=== PATIENT | female | born 2000 | race Caucasian/White ===

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

== ENCOUNTER 2019-03-26 08:01 | Emergency (ER) | payer OTHER ==
[~2019-03-26] VITALS: Ht 172.7 cm; Wt 93.0 kg
[~2019-03-26 08:01] MED LIST changes: +AMOXICILLIN500 M3 PO; +Motrin,Rufen800 MG PO
[2019-03-26 08:02] VITALS: BP 122/77
[2019-03-26] MEDS ORDERED: ZITHROMAX250 MG PO (08:46)
[2019-03-26 09:07] LABS: BASO # 0.1 10*3/uL (0.0-0.1); BASO % 0.9 % (0.0-1.0); EOS # 0.3 10*3/uL (0.0-0.4); EOS % 4.3 % (1.0-4.0); HEMATOCRIT 40.3 % (37.0-47.0); HEMOGLOBIN 12.8 g/dl (12.0-16.0); LYMPH # 2.5 10*3/uL (1.3-4.4); LYMPH % 37.6 % (27.0-41.0); MEAN CELL VOLUME 91.2 fl (81.0-99.0); MEAN CORPUSCULAR HGB CONC 31.8 g/dl (33.0-37.0); MEAN PLATELET VOLUME 11.2 fl (9.6-12.3); MONO # 0.6 10*3/uL (0.1-1.0); MONO % 9.2 % (3.0-9.0); NEUT # 3.1 10*3/uL (2.3-7.9); NEUT % 47.5 % (47.0-73.0); PLATELET COUNT AUTOMATED 216 10*3/uL (130-400); RED BLOOD COUNT 4.42 10*6/uL (4.10-5.10); RED CELL DISTRI WIDTH 13.7 % (0-14.5); WHITE BLOOD COUNT 6.6 10*3/uL (4.8-10.8)
== END 2019-03-26 09:40 | disposition home or self-care (01) ==
LOC: ED 08:01
PROVIDERS: Hospitalist
DX: J32.9 Chronic sinusitis, unspecified (principal); R11.2 Nausea with vomiting, unspecified; J02.9 Acute pharyngitis, unspecified

== ENCOUNTER 2019-05-06 06:52 | Emergency (ER) | payer OTHER ==
[~2019-05-06] VITALS: Ht 172.7 cm; Wt 91.6 kg
[~2019-05-06 06:52] MED LIST changes: +ZITHROMAX250 MG PO
[2019-05-06 06:54] VITALS: BP 111/70
[2019-05-06] MEDS ORDERED: PROVENTIL HFA6.7 GM INH (08:04)
[2019-05-06] MEDS ORDERED: DELTASONE20 M1 PO (08:04)
== END 2019-05-06 08:11 | disposition home or self-care (01) ==
LOC: ED 06:52
DX: J20.9 Acute bronchitis, unspecified (principal); J06.9 Acute upper respiratory infection, unspecified

== ENCOUNTER 2019-09-02 20:44 | Emergency (ER) | payer OTHER ==
[~2019-09-02] VITALS: Ht 172.7 cm; Wt 95.3 kg
[~2019-09-02 20:44] MED LIST changes: +DELTASONE20 M1 PO; +PROVENTIL HFA6.7 GM INH; +TESSALON PERLE100 MG PO
[2019-09-02 20:46] VITALS: BP 120/73
[2019-09-02 22:01] LABS: BASO # 0.1 10*3/uL (0.0-0.1); BASO % 0.8 % (0.0-1.0); EOS # 0.2 10*3/uL (0.0-0.4); EOS % 3.9 % (1.0-4.0); HEMATOCRIT 39.7 % (37.0-47.0); HEMOGLOBIN 13.1 g/dl (12.0-16.0); LYMPH # 2.1 10*3/uL (1.3-4.4); LYMPH % 32.9 % (27.0-41.0); MEAN CELL VOLUME 89.8 fl (81.0-99.0); MEAN CORPUSCULAR HGB 29.6 pg (27.0-31.0); MONO # 0.8 10*3/uL (0.1-1.0); NEUT # 3.1 10*3/uL (2.3-7.9); NEUT % 49.2 % (47.0-73.0); PLATELET COUNT AUTOMATED 218 10*3/uL (130-400); RED BLOOD COUNT 4.42 10*6/uL (4.10-5.10); RED CELL DISTRI WIDTH 12.7 % (0-14.5); WHITE BLOOD COUNT 6.2 10*3/uL (4.8-10.8)
[2019-09-02 22:22] LABS: ALBUMIN 3.7 gm/dl (3.1-4.5); ALKALINE PHOSPHATASE 83 U/L (45-117); BUN 12 mg/dl (7-24); CHLORIDE 106 mmol/L (98-107); CREATININE 0.69 mg/dL (0.55-1.02); LIPASE 53 U/L (73-393); POTASSIUM 3.6 mmol/L (3.5-5.1); SGOT/AST 11 IU/L (3-35); SGPT/ALT 12 U/L (12-78); SODIUM 140 mmol/L (136-145); TOTAL PROTEIN 7.3 gm/dL (6.4-8.2)
[2019-09-02 22:58] LABS: BILIRUBIN NEGATIVE (NEGATIVE); BLOOD NEGATIVE (NEGATIVE); CLARITY CLOUDY (CLEAR); COLOR YELLOW (YELLOW); GLUCOSE NEGATIVE (NEGATIVE); KETONE NEGATIVE (NEGATIVE); LEUKO ESTERASE NEGATIVE (NEGATIVE); NITRITE NEGATIVE (NEGATIVE); UROBILINOGEN 0.2 E.U./dl (0.2-1.0)
[2019-09-02 23:03] LABS: EPITHELIAL CELLS TNTC
[2019-09-02 23:04] LABS: BACTERIA 1+; CALCIUM OXALATE CRYSTALS 1+; RBC 0-2 rbc/hpf (0-2); WBC 0-2 wbc/hpf (0-5)
[2019-09-03] MEDS ORDERED: ZOFRAN4 MG PO (00:10)
== END 2019-09-03 00:25 | disposition home or self-care (01) ==
LOC: ED 20:44
PROVIDERS: Nurse Practitioner Family
DX: A08.4 Viral intestinal infection, unspecified (principal); R11.2 Nausea with vomiting, unspecified; F17.200 Nicotine dependence, unspecified, uncomplicated; Z79.899 Other long term (current) drug therapy

== ENCOUNTER 2019-10-03 01:09 | Emergency (ER) | payer OTHER ==
[~2019-10-03] VITALS: Ht 172.7 cm; Wt 81.6 kg
[2019-10-03 01:17] VITALS: BP 106/66
== END 2019-10-03 02:48 | disposition home or self-care (01) ==
LOC: ED 01:09
DX: S70.01XA Contusion of right hip, initial encounter (principal); W18.39XA Other fall on same level, initial encounter; Y93.89 Activity, other specified; Y92.89 Other specified places as the place of occurrence of the external cause; Y99.8 Other external cause status

== ENCOUNTER 2023-11-29 09:01 | Emergency (ER) | payer SELFPAY ==
[~2023-11-29] VITALS: Ht 172.7 cm; Wt 73.5 kg
[2023-11-29 09:07] VITALS: BP 128/72
[2023-11-29] MEDS ORDERED: AMOX-CLAV 875-1 EACH PO (09:13)
== END 2023-11-29 09:23 | disposition home or self-care (01) ==
LOC: ED 09:01
DX: J02.8 Acute pharyngitis due to other specified organisms (principal)

== ENCOUNTER 2024-06-25 18:51 | Emergency (ER) | payer SELFPAY ==
[~2024-06-25] VITALS: Ht 172.7 cm; Wt 77.1 kg
[~2024-06-25 18:51] MED LIST changes: +AMOX-CLAV 875-1 EACH PO
[2024-06-25 19:17] VITALS: BP 115/64
[2024-06-25] MEDS ORDERED: AMOX-CLAV 875-1 EACH PO (19:25)
[2024-06-25] MEDS ORDERED: Amoxicillin/Clavulanate Pota 875 MG TAB PO ONE (19:30)
== END 2024-06-25 19:39 | disposition home or self-care (01) ==
LOC: ED 18:51
DX: J02.9 Acute pharyngitis, unspecified (principal); R11.2 Nausea with vomiting, unspecified

== ENCOUNTER 2024-11-04 11:42 | Emergency (ER) | payer MEDICAID ==
[~2024-11-04] VITALS: Ht 172.7 cm; Wt 90.7 kg
[2024-11-04 11:54] VITALS: BP 117/68
[2024-11-04] MEDS ORDERED: AMOX-CLAV 875-1 EACH PO (14:19)
== END 2024-11-04 14:33 | disposition home or self-care (01) ==
LOC: ED 11:42
DX: O98.512 Other viral diseases complicating pregnancy, second trimester (principal); J02.0 Streptococcal pharyngitis; Z20.822 Contact with and (suspected) exposure to COVID-19; Z3A.15 15 weeks gestation of pregnancy